=== PATIENT | male | born 1980 | race Caucasian/White ===

== ENCOUNTER 2023-05-22 14:14 | Emergency (ER) | payer OTHER, SELFPAY ==
[2023-05-22] MEDS ORDERED: IPRATROPIUM BROM 0.5MG/2.5ML ONE (14:55)
[2023-05-22] MEDS ORDERED: ALBUTEROL 2.5 MG/3 ML NEB SOL ONE (14:55)
--- NOTE | 2023-05-22 15:16 | RAD REPORT ---
EXAM DESCRIPTION: CT - Thorax Wo Con CLINICAL HISTORY: Chest pain Pain;Dyspnea COMPARISON: No comparisons FINDINGS: The lungs are clear. No pleural thickening or pleural effusion. No pneumothorax. No axillary, mediastinal or hilar adenopathy. Mildly displaced fractures of the anterolateral seventh and eighth ribs noted. Nondisplaced fracture seen lateral ninth and tenth ribs. No gross upper abdominal finding. All CT scans are performed using dose optimization technique as appropriate and may include automated exposure control or mA/KV adjustment according to patient size. IMPRESSION: Mild right-sided rib fractures as detailed.No pneumothorax seen.
--- NOTE | 2023-05-22 15:17 | RAD REPORT ---
EXAM DESCRIPTION: CT - Abdomen Wo Contrast CLINICAL HISTORY: pain Abdominal pain COMPARISON: Thorax Wo Con dated 05/22/[address] scans are performed using dose optimization technique as appropriate and may includ e automated exposure control or mA/KV adjustment according to patient size. FINDINGS: Right-sided lower lateral rib fractures are noted detailed on CT chest. The liver, spleen, pancreas, adrenal glands and kidneys are within normal limits. Shunt tubing is not ed. No free fluid, bowel obstruction or free air. No significant adenopathy in the abdomen. IMPRESSION: No acute intra- abdominal abnormality.
--- NOTE | 2023-05-22 15:32 | ER ---
Nurse's Notes [facility] Name: Crescencio Delgado Age: 42 yrs Sex: Male : 1980 Arrival Date: 05/22/2023 Time: 14:14 Bed 16 Private MD: Diagnosis: Multiple fractures of ribs, right side Presentation: 05/22 14:22 Chief complaint: Patient states: Right flank pain onset 2 weeks ago s/p slipping and cm10 falling. Pt states that he also has right rib pain that is worse when taking a deep breath. Coronavirus screen: Vaccine status: Patient reports receiving the 2nd dose of the covid vaccine. Client denies travel out of the [place] in the last 14 days. Ebola Screen: Patient denies travel to an Ebola-affected area in the 21 days before illness onset. No symptoms or risks identified at this time. Initial Sepsis Screen: Does the patient meet any 2 criteria? No. Patient's initial sepsis screen is negative. Does the patient have a suspected source of infection? No. Patient's initial sepsis screen is negative. Risk Assessment: Do you want to hurt yourself or someone else? Patient reports no desire to harm self or others. Onset of symptoms was May 22, 2023. 14:22 Method Of Arrival: Ambulatory cm10 14:22 Acuity: KAREY 3 cm10 Historical: - Allergies: 14:23 No Known Allergies; cm10 - Home Meds: 14:23 None [Active]; cm10 - PSHx: 14:23 None; cm10 - Immunization history:: Adult Immunizations unknown. - Social history:: Smoking status: Patient reports the use of cigarette tobacco products, smokes one-half pack cigarettes per day. Screenin:08 [facility] ED Fall Risk Assessment (Adult) History of falling in the last 3 months, db including since admission No falls in past 3 months (0 pts) Confusion or Disorientation No (0 pts) Intoxicated or Sedated No (0 pts) Impaired Gait No (0 pts) Mobility Assist Device Used No (0 pt) Altered Elimination No (0 pt) Score/Fall Risk Level 0 - 2 = Low Risk Oriented to surroundings, Maintained a safe environment. Abuse screen: Denies threats or abuse. Denies injuries from another. Nutritional screening: No deficits noted. Tuberculosis screening: No symptoms or risk factors identified. Assessment: 14:30 Reassessment: Patient appears in no apparent distress at this time. Patient and/or db family updated on plan of care and expected duration. Pain level reassessed. Patient is alert, oriented x 3, equal unlabored respirations, skin warm/dry/pink. PT TO CT. 16:14 Reassessment: Patient appears in no apparent distress at this time. Patient and/or db family updated on plan of care and expected duration. Pain level reassessed. Patient is alert, oriented x 3, equal unlabored respirations, skin warm/dry/pink. General: Appears in no apparent distress. comfortable, Behavior is calm, cooperative. Pain: Complains of pain in back. Neuro: Level of Consciousness is awake, alert, obeys commands, Oriented to person, place, time, situation, Appropriate for age. Vital Signs: 14:22 BP 148 / 101; Pulse 87; Resp 18; Temp 97.6; Pulse Ox 99% ; Weight 72.57 kg; Height 5 cm10 ft. 8 in. ; Pain 10/10; 15:55 BP 154 / 101; Pulse 86; Resp 16; Pulse Ox 97% on R/A; db 14:22 Body Mass Index 24.33 (72.57 kg, 172.72 cm) cm10 14:22 Pain Scale: Adult cm10 ED Course: 14:16 Patient arrived in ED. mg5 14:16 Adri[facility]C [facility] kb 14:17 Alexandro Ortiz MD is Attending Physician. kb 14:23 Triage completed. cm10 14:23 Arm band placed on Patient placed in an exam room, on a stretcher. cm10 14:34 Amelia Viveros, RN is Primary Nurse. db 14:43 Abdomen Wo Contrast In Process Unspecified. EDMS 14:43 Thorax Wo Con In Process Unspecified. EDMS 15:50 Provided Education on: DISCHARGE. db 16:09 Patient has correct armband on for positive identification. db 16:09 No provider procedures requiring assistance completed. Patient did not have IV access db during this emergency room visit. Administered Medications: 15:00 Drug: Albuterol Inhalation 2.5 mg Inhalation once Route: Inhalation; db 16:08 Follow up: Response: No adverse reaction db 15:00 Drug: Ipratropium Inhalation Aerosol 0.5 mg Inhalation once Route: Inhalation; db 16:08 Follow up: Response: No adverse reaction db 15:47 CANCELLED (Other Intervention Used): norco10 mg-325 mg 1 tabs PO once kb 15:48 Drug: Ketorolac IM 30 mg IM once Route: IM; Site: right deltoid; db 16:08 Follow up: Response: No adverse reaction db 15:48 Drug: HYDROcodone-acetaminophen PO 5 mg-325 mg 2 tabs PO once Route: PO; db 16:08 Follow up: Response: No adverse reaction db Medication: 15:50 VIS not applicable for this client. db Outcome: 15:32 Discharge ordered by . kb 16:09 Discharged to home ambulatory, db 16:09 Condition: stable 16:09 Discharge instructions given to patient, Instructed on discharge instructions, follow up and referral plans. Prescriptions given X 2, 16:18 Patient left the ED. db Signatures: Dispatcher [employer] EDAdriana Grissom, JUAN OSPINA-Amelia King RN RN Rhonda Magaña RN RN 10 Anju Marie 5
--- NOTE | 2023-05-22 15:33 | EDPHYS ---
Physician Documentation [facility] Name: Crescencio Delgado Age: 42 yrs Sex: Male : 1980 Arrival Date: 05/22/2023 Time: 14:14 Bed 16 Private MD: ED Physician Alexandro Ortiz HPI: 05/22 15:01 This 42 yrs old Male presents to ER via Ambulatory with complaints of Back Pain, Side kb Pain, Fall Injury. 15:30 Pt states he tripped and fell 12 days ago and has had pain to right posterior ribs kb since then. States pain is worse with inspiration and movement. Historical: - Allergies: 14:23 No Known Allergies; cm10 - Home Meds: 14:23 None [Active]; cm10 - PSHx: 14:23 None; cm10 - Immunization history:: Adult Immunizations unknown. - Social history:: Smoking status: Patient reports the use of cigarette tobacco products, smokes one-half pack cigarettes per day. ROS: 15:01 Constitutional: Negative for fever, chills, and weight loss, kb 15:01 All other systems are negative, 15:01 Back: Positive for pain at rest, pain with movement, of the right subscapular area, kb Exam: 15:29 Constitutional: This is a well developed, well nourished patient who is awake, alert, kb and in no acute distress. Head/Face: Normocephalic, atraumatic. ENT: Moist Mucous membranes Chest/axilla: Normal chest wall appearance and motion. Cardiovascular: Regular rate Abdomen/GI: Soft, non-tender. No distention Skin: Warm, dry with normal turgor. Normal color. MS/ Extremity: Pulses equal, no cyanosis. Neurovascular intact. Full, normal range of motion. Neuro: Awake and alert, GCS 15, oriented to person, place, time, and situation. Moves all extremities. Normal gait. 15:29 Back: pain, that is moderate, of the right subscapular area, ROM is painful, 15:31 Respiratory: the patient does not display signs of respiratory distress, Respirations: kb normal, Breath sounds: wheezing: expiratory that is mild, is heard diffusely, Vital Signs: 14:22 BP 148 / 101; Pulse 87; Resp 18; Temp 97.6; Pulse Ox 99% ; Weight 72.57 kg; Height 5 cm10 ft. 8 in. ; Pain 10/10; 15:55 BP 154 / 101; Pulse 86; Resp 16; Pulse Ox 97% on R/A; db 14:22 Body Mass Index 24.33 (72.57 kg, 172.72 cm) cm10 14:22 Pain Scale: Adult cm10 MDM: 14:17 Patient medically screened. kb 15:29 Differential diagnosis: Fatigue contusion, pneumonia. Data reviewed: vital signs, kb nurses notes. Consideration of Admission/Observation Escalation of care including admission/observation considered. admission considered for rib fractures but injury occurred 12 days ago, oxygen saturation 99% on room air. Counseling: I had a detailed discussion with the patient and/or guardian regarding the historical points, exam findings, and any diagnostic results supporting the discharge/admit diagnosis, radiology results, the need for outpatient follow up, a family practitioner, to return to the emergency department if symptoms worsen or persist or if there are any questions or concerns that arise at home. 05/22 14:38 Order name: Abdomen Wo Contrast; Complete Time: 15:22 EDMS 05/22 14:40 Order name: Thorax Wo Con; Complete Time: 15:22 EDMS 05/22 15:29 Order name: INCENTIVE SPIROMETRY kb Administered Medications: 15:00 Drug: Albuterol Inhalation 2.5 mg Inhalation once Route: Inhalation; db 16:08 Follow up: Response: No adverse reaction db 15:00 Drug: Ipratropium Inhalation Aerosol 0.5 mg Inhalation once Route: Inhalation; db 16:08 Follow up: Response: No adverse reaction db 15:47 CANCELLED (Other Intervention Used): norco10 mg-325 mg 1 tabs PO once kb 15:48 Drug: Ketorolac IM 30 mg IM once Route: IM; Site: right deltoid; db 16:08 Follow up: Response: No adverse reaction db 15:48 Drug: HYDROcodone-acetaminophen PO 5 mg-325 mg 2 tabs PO once Route: PO; db 16:08 Follow up: Response: No adverse reaction db Disposition Summary: 05/22/23 15:32 Discharge Ordered Notes: Location: Home kb Condition: Stable kb Diagnosis - Multiple fractures of ribs, right side kb Followup: kb - With: Emergency Department - When: As needed - Reason: Worsening of condition Followup: kb - With: Private Physician - When: 2 - 3 days - Reason: Recheck today's complaints, Continuance of care, Re-evaluation by your physician Discharge Instructions: - Discharge Summary Sheet kb - How to Use an Incentive Spirometer kb - Rib Fracture, [id number] kb Forms: - Medication Reconciliation Form kb - Thank You Letter kb - Antibiotic Education kb - Prescription Opioid Use kb - Patient Portal Instructions kb - Leadership Thank You Letter kb Prescriptions: - Diclofenac Sodium 75 mg Oral tablet, delayed release (enteric coated) - take 1 tablet ORAL route 2 times per day As needed; 30 tablet; Refills: 0, kb Product Selection Permitted - Tramadol 50 mg Oral Tablet - take 1 tablet ORAL route every 8 hours as needed; 12 tablet; Refills: 0, kb Product Selection Permitted Signatures: Dispatcher [employer] EDMS Adriana Ron FNP-C FNP-Amelia King RN RN Rhonda Magaña RN RN cm10 Corrections: (The following items were deleted from the chart) 14:36 14:25 Thorax Wo Con+[id number] ordered. EDMS EDMS 14:40 14:36 Chest Abd Pelvis Wo Con ordered. EDNY EDMS 15:02 15:01 Back: Positive for pain at rest, pain with movement, of the left subscapular area kb and right subscapular area, kb 15:31 15:29 Constitutional: This is a well developed, well nourished patient who is awake, kb alert, and in no acute distress. Head/Face: Normocephalic, atraumatic. ENT: Moist Mucous membranes Chest/axilla: Normal chest wall appearance and motion. Cardiovascular: Regular rate Respiratory: Respirations even and unlabored. No increased work of breathing. Talking in full sentences Abdomen/GI: Soft, non-tender. No distention Skin: Warm, dry with normal turgor. Normal color. MS/ Extremity: Pulses equal, no cyanosis. Neurovascular intact. Full, normal range of motion. Neuro: Awake and alert, GCS 15, oriented to person, place, time, and situation. Moves all extremities. Normal gait. kb 15:47 15:24 [place] PO 10 mg-325 mg 1 tabs PO once ordered. kb kb
[2023-05-22] MEDS ORDERED: KETOROLAC 30 MG/ML INJ ONE (16:02)
[2023-05-22] MEDS ORDERED: HYDROCODONE/APAP 5/325 MG TAB ONE (16:03)
[2023-05-22 18:25] VITALS: BP 154/101; TEMP 97.6; O2SAT 97
== END 2023-05-22 16:18 | disposition home or self-care (01) ==
LOC: ER 14:14
DX: S22.41XA Multiple fractures of ribs, right side, initial encounter for closed fracture (principal)
CPT/HCPCS: 71250; 74150; J7613; J7644